=== PATIENT | male | born 1965 | race Caucasian/White ===

== ENCOUNTER 2017-08-04 09:57 | Observation (INO) | payer OTHER ==
--- NOTE | 2017-08-04 11:14 | EDPHY ---
H & P Time Seen by Provider: 08/04/17 11:11 HPI/ROS: Chief complaint. Ankle injury HPI. 52-year-old male presents emergency department with left ankle injury. He [place] ice. He felt a pop. The ankle feels unstable. He can't bear weight. Went to urgent care and he has displaced fracture. Patient is visiting from [place]. No previous injury. Last meal was clipped bar and water at 7:00 a.m. And then 2 sips of water at 10:00 a.m.. He denies any other injuries. ROS Constitutional. no fever/chills, no weakness Eyes. no problems with vision ENT. no sore throat, no nasal drainage Cardiovascular. no chest pain Respiratory. no shortness of breath, no cough Abdominal. no abdominal pain, no nausea/vomiting, no diarrhea . no problems urinating MS. Left ankle pain and swelling Skin. no rash Lymph. no swollen glands Neuro. Can't walk secondary to pain Past Medical/Surgical History: Pancreatitis Social History: , nonsmoker, no alcohol Smoking Status: Never smoked Physical Exam: General Appearance: Alert pleasant well-developed male mild distress vital signs are stable Eyes: Pupils equal and round no pallor or injection. ENT, Mouth: Mucous membranes are moist. Respiratory: There are no retractions, lungs are clear to auscultation. Cardiovascular: Regular rate and rhythm. Gastrointestinal: Abdomen is soft and nontender, no masses, bowel sounds normal. Neurological: Awake and alert, sensory and motor exams grossly normal. Skin: Warm and dry, no rashes. Musculoskeletal: Neck is supple nontender. Extremities diffuse swelling to both medial and lateral aspect of the left ankle. No interruption or break in the skin. Distal motor vascular sensitivity is intact Psychiatric: Patient is oriented X 3, there is no agitation. Constitutional: Initial Vital Signs Temperature (C) 37 C 08/04/17 10:12 Heart Rate 77 08/04/17 10:12 Respiratory Rate 18 08/04/17 10:12 Blood Pressure 147/91 H 08/04/17 10:12 O2 Sat (%) 95 08/04/17 10:12 O2 Delivery Mode Room Air Allergies/Adverse Reactions: No Known Allergies Allergy (Unverified 08/04/17 10:12) Home Medications: Medication Instructions Recorded Naproxen Sodium [Aleve 220 MG (*)] 220 mg PO DAILY PRN 08/04/17 Medical Decision Making - Diagnostics Imaging Results: Imaging Impressions Extremity CT 08/04/17 11:50 Impression: 1. Fracture of the distal fibula and posterior tibial plafond with widening of the medial aspect of the ankle mortise compatible with unstable fracture. There is displacement aspect posterior laterally of the distal aspect by 7-8 mm. X-rays reviewed by me show a displaced fracture of the distal fibular shaft at the ankle joint level with lateral and posterior displacement by about 8 mm. There is a small to chip her avulsion fracture fragment adjacent to the medial talar dome. It is suspicious for fracture of the posterior aspect of the distal tibia plafond Procedures: IV normal saline. Morphine for pain, Ativan for anxiety, Zofran for nausea. Patient is kept NPO ED Course/Re-evaluation: The patient and I Discussed the x-ray findings. I consulted discussed case with Dr. Parada on-call for Orthopedics. He would like to take the patient to the operating room this afternoon. He would like a CT of the ankle prior to OR. I have discussed this with the patient and he expresses understanding and agreement Differential Diagnosis: Closed ankle fracture but joint disruption and requires ORIF - Data Points Medications Given: Discontinued Medications Sodium Chloride (Ns) 1,000 mls @ 0 mls/hr IV EDNOW ONE; Wide Open PRN Reason: Protocol Stop: 08/04/17 11:51 Last Admin: 08/04/17 12:30 Dose: 1,000 mls Lorazepam (Ativan Injection) 1 mg IVP EDNOW ONE Stop: 08/04/17 11:52 Last Admin: 08/04/17 12:29 Dose: 1 mg Morphine Sulfate (Morphine) 6 mg IVP EDNOW ONE Stop: 08/04/17 11:52 Last Admin: 08/04/17 12:32 Dose: 4 mg Ondansetron HCl (Zofran) 4 mg IVP EDNOW ONE Stop: 08/04/17 11:52 Last Admin: 08/04/17 12:29 Dose: 4 mg Departure - Departure Disposition: [facility] Clinical Impression: Closed left ankle fracture Qualifiers: Encounter type: initial encounter Qualified Code(s): S82.892A - Other fracture of left lower leg, initial encounter for closed fracture Condition: Good
[2017-08-04] MEDS ORDERED: NS 1,000 ML IV ONE (11:50)
[2017-08-04] MEDS ORDERED: ONDANSETRON 4 MG/2 ML VIAL IVP ONE (11:51)
[2017-08-04] MEDS ORDERED: LORazepam 2 MG/ML INJ IVP ONE (11:51)
[2017-08-04 12:01] LABS: PLATELET COUNT 203 10^3/uL (150-400)
[2017-08-04 12:11] LABS: INR 1.06 (0.83-1.16)
--- NOTE | 2017-08-04 12:44 | CPEKG ---
Heart Rate: 70 RR Interval: 857 P-R Interval: 144 QRSD Interval: 80 QT Interval: 388 QTC Interval: 419 P Lindley: 31 QRS Lindley: 29 T Wave Lindley: 21 EKG Severity - ABNORMAL ECG - EKG Impression: SINUS RHYTHM EKG Impression: PROBABLE POSTERIOR INFARCT Electronically Signed By: Lacho Harley 04-Aug-2017 15:45:08
[2017-08-04] MEDS ORDERED: ceFAZolin 2 GM/DEXTROSE 100 ML IV ONE (14:43)
[2017-08-04] MEDS ORDERED: ONDANSETRON 4 MG/2 ML VIAL IVP PRN ×2 (14:49→17:03)
--- NOTE | 2017-08-04 14:49 | POSTOPPROG ---
Post Op Note Date of Operation: 08/04/17 Surgeon: Tremayne Parada Anesthesia: GET(General Endotracheal) Pre-op Diagnosis: L lateral and posterior malleolus fractures, deltoid ligament disruption Post-op Diagnosis: same Procedure: ORIF L lateral and posterior malleolus fractures, deltoid ligament repair Inf/Abcess present in the surg proc area at time of surgery?: No EBL: Minimal
[2017-08-04] MEDS ORDERED: MIDAZOLAM 2 MG/2 ML VIAL ONE (14:50)
[2017-08-04] MEDS ORDERED: fentaNYL 100 MCG/2 ML INJ ONE ×3 (14:50→15:39)
[2017-08-04] MEDS ORDERED: ceFAZolin 2 GM/SWFI 2 GM/20 ML SYR IVP ONE (15:00)
[2017-08-04] MEDS ORDERED: D5W 1/2 NS W/ 20 KCl/L 1,000 ML IV SCH (15:00)
[2017-08-04] MEDS ORDERED: PROPOFOL 200 MG/20 ML VIAL ONE (15:07)
[2017-08-04] MEDS ORDERED: LIDOCAINE 2% 100 MG/5 ML SYR ONE (15:08)
--- NOTE | 2017-08-04 15:25 | GCON ---
[f rep st] CONSULTATION CONSULTATION AND HISTORY AND PHYSICAL. CHIEF COMPLAINT: Left ankle pain. HISTORY OF PRESENT ILLNESS: The patient is a 52-year-old who sustained a fall on the ice, twisting h is left ankle. He noted immediate pain and deformity with inability to weightbear. He denies any pr evious problems or injuries relative to his left ankle. PAST MEDICAL HISTORY: Unremarkable. MEDICATIONS: None. ALLERGIES: No known drug allergies. PAST SURGICAL HISTORY: None. SOCIAL HISTORY: Negative for tobacco use. FAMILY HISTORY: Noncontributory. PHYSICAL EXAMINATION: GENERAL: Patient is alert and oriented x3, in mild distress secondary to his ankle pain. HEENT: Head is normocephalic. Pupils equal, round, reactive to light. Extraocular eye movements intact. NECK: Supple. No JVD or lymphadenopathy. CHEST: Clear to auscultation. HEART : Regular rate and rhythm. No murmurs or gallops. ABDOMEN: Soft, nontender, nondistended. No org anomegaly. GENITORECTAL AND BREAST: Exam was deferred. EXTREMITIES: Exam reveals a left ankle with moderate swelling. He has palpable dorsalis pedis pulse. His distal neurovascular exam was grossly intact. IMAGING: Shows evidence of a lateral and posterior malleolus fracture with medial widening. ASSESSMENT: Left ankle fracture dislocation (posterior and lateral malleolus and deltoid ligament di sruption). PLAN: Based on the displaced unstable nature of his injury, it was recommended that operative treatm ent consisting of open reduction, internal fixation, and deltoid ligament repair be pursued. /[id number]/MODL
[2017-08-04] MEDS ORDERED: BUPIVACAINE 0.25% 30 ML SDV ONE (16:01)
[2017-08-04] MEDS ORDERED: NALOXONE HCL 0.4 MG/ML INJ IVP PRN (17:03)
[2017-08-04] MEDS ORDERED: MEPERIDINE 25 MG/ML SYR IVP PRN (17:03)
[2017-08-04] MEDS ORDERED: fentaNYL 100 MCG/2 ML INJ IVP PRN (17:03)
[2017-08-04] MEDS ORDERED: ALBUTEROL 3 ML DEYVIAL IH PRN (17:03)
--- NOTE | 2017-08-04 17:04 | POSTANESTH ---
Post Anesthetic Evaluation Cardiovascular Status: Similar to Pre-Op Cond Respiratory Status: Similar to Pre-op Cond. Level of Consciousness/Mental Status: Mildly Sleepy, Arousable Pain Control: Adequate, Prn Tx Ordered Nausea/Vomiting Control: Adequate, Prn Tx Ordered Complications Possibly Related to Anesthesia: None Noted
--- NOTE | 2017-08-04 17:30 | GOP ---
[f rep st] OPERATIVE REPORT DATE OF OPERATION: 08/04/2017 SURGEON: Tremayne Parada MD ANESTHESIA: General plus popliteal and saphenous nerve blocks performed by the anesthesiologist at m y request for postoperative pain management. PREOPERATIVE DIAGNOSIS: 1. Left bimalleolar fracture (lateral and posterior malleolus). 2. Left deltoid ligament disruption. POSTOPERATIVE DIAGNOSIS: 1. Left bimalleolar fracture (lateral and posterior malleolus). 2. Left deltoid ligament disruption. PROCEDURE PERFORMED: 1. Open reduction/internal fixation, left bimalleolar ankle fracture (lateral and posterior malleolu s). 2. Open repair left deltoid ligament. 3. Intraoperative use of fluoroscopy. FINDINGS: ESTIMATED BLOOD LOSS: Minimal. INDICATIONS: Patient is a 52-year-old, who sustained a fall on ice on the day of presentation. He s ustained a left ankle fracture dislocation pattern. He presented to the emergency room. A provision al closed reduction was performed. Based on the displaced nature of his injury, it was recommended t hat operative treatment, consisting of open reduction/internal fixation, be pursued. The patient ack nowledged he understood the potential risks of the operation, including, but not limited to, bleeding , infection, neurovascular damage, loss of limb or the function, malunion, nonunion, need for hardwar e removal, pain or functional limitations despite operative treatment, and anesthetic risks. He ackn owledged he understood the potential risks, planned procedure, and postoperative plan well, and had a ll questions answered prior to surgery. He gave his consent for the operative procedure. DESCRIPTION OF PROCEDURE: The patient was brought to the operating room after popliteal and saphenou s nerve blocks were performed by the anesthesiologist at my request for postoperative pain management . IV antibiotics were administered. He was placed in a supine position where general anesthetic was administered. A tourniquet was placed on the left calf, and the patient was transferred to a right lateral decubitus position on the operating table with beanbag support, axillary roll, and padding of all bony prominences. The left lower leg was prepped and draped in standard sterile fashion. After marking the incision and Jefry wrap exsanguination, tourniquet was inflated to 250 mmHg. A longitudin al incision was made posterior to the distal fibula. Skin and subcutaneous tissues were sharply inci sed. Sharp dissection was carried just anterior to the peroneal tendons, exposing the posterior aspe ct of the fibula. Hematoma was evacuated. Based on the nature of the fracture pattern, a posterior "antiglide" plating technique was performed. A 6-hole 1/3 tubular plate was malleted flat at its dis branden aspect and curved slightly at the distal tip. This was placed along the posterior border of the fibula. Just proximal to the fracture plane, a 3.5 mm bicortical screw was placed in a posterior-to- anterior direction through the plate. As the screw was tightened, the fracture was anatomically redu britt with a dental pick and a 2-point reduction clamp. With the fracture held in anatomically reduced position, a 2.7 mm cortical screw was placed in lag fashion through the plate across the fracture si te. A supplemental 3.5 mm bicortical screw was then placed in the most proximal hole of the plate. Fluoroscopic views confirmed favorable hardware placement and anatomic fracture reduction. Attention was then directed toward the posterior malleolar fracture. Through the same incision, the interval between the peroneal and flexor hallucis longus tendons was utilized for exposure of the pos terior aspect of the distal tibia. The flexor hallucis brevis was retracted medially. The posterior malleolar fracture was identified. A 4-hole 1/4 tubular plate was then slightly contoured and place d along the posterolateral border of the distal tibia. Just proximal to the fracture plane, a 2.7 mm cortical screw was placed in a [id number] direction through the most proximal hole in the plate, reducing and stabilizing the fracture. A 2.7 mm cortical screw was then placed in lag fashio n through the most distal hole in the plate across the fracture. Fluoroscopic views confirmed favora ble reduction and hardware placement. Attention was directed toward closure. The fascia layer and peroneal retinaculum were reapproximated with 2-0 Vicryl suture in interrupted fashion, subcutaneous tissue closed with 3-0 Vicryl suture in interrupted fashion, and skin closed with 4-0 nylon interrupted sutures. The beanbag was deflated, a nd, keeping sterile field intact, the patient was carefully transitioned to a supine position. Attention was directed toward the medial ankle. An oblique incision was made along the anteromedial aspect of the ankle. Skin and subcutaneous tissue were sharply incised. Care was taken to avoid dam age to the saphenous vein. The superficial and deep deltoid ligaments were noted to be completely di srupted. They were slightly in folded in the medial gutter. The in-fold of the ligament was removed . Examination of the ankle joint revealed no visible chondral damage. A 2.9 mm JuggerKnot anchor wa s placed in the deltoid insertion of the medial malleolus. The suture ends were then pulled through the deep deltoid ligament and secured. The subcutaneous tissue was then closed with 3-0 Vicryl sutur e in interrupted fashion and skin closed with 4-0 nylon interrupted vertical mattress sutures. 0.5% M arcaine without epinephrine was injected into the medial wound. The wounds were dressed with sterile Adaptic, 4 x 4, and Webril, and leg was placed in a below-knee splint. The patient tolerated the pr ocedure well and was taken to the recovery room, extubated, in stable condition postoperatively. All sponge, needle, and instrument counts were reported as being correct. DRAINS: None. COMPLICATIONS: None. PLAN: The patient will be admitted for overnight observation. He will be nonweightbearing on his op erative extremity. /[id number]/MODL
[2017-08-04] MEDS ORDERED: ceFAZolin 2 GM/DEXTROSE 100 ML IV SCH (22:00)
[2017-08-05 04:37] VITALS: RESP 16
[2017-08-05] MEDS: oxyCODONE IR 5 MG TAB PO PRN ×2 (05:43→09:37)
[2017-08-05 07:41] VITALS: BP 98/68; PULSE 84; TEMP 97.9; O2SAT 92
--- NOTE | 2017-08-05 08:37 | SOAPPROG ---
SOAP Progress Note Assessment/Plan: Assessment: S/P ORIF R bimalleolar ankle fx/ deltoid ligament repair Pain tolerable. Nerve block functioning Gilles. Diet + U/O Splint intact. No D/C Toes with + DF/PF Plan: OOB/PT/ D/C home 08/05/17 08:34 Objective: Vital Signs Temp Pulse Resp BP Pulse Ox 36.6 C 84 16 98/68 L 92 08/05/17 07:40 08/05/17 07:40 08/05/17 07:40 08/05/17 07:40 08/05/17 07:40 08/04/17 08/05/17 08/06/17 05:59 05:59 05:59 Intake Total 830 Output Total 725 Balance 105 PT 14.0 SEC (12.0-15.0) 08/04/17 11:51 INR 1.06 (0.83-1.16) 08/04/17 11:51 ICD10 Worksheet Patient Problems: Problems Problem Status Onset Closed left ankle fracture Acute
[2017-08-05] MEDS ORDERED: ENOXAPARIN 40 MG/0.4 ML SYR SC ONE (09:00)
[2017-08-05] MEDS ORDERED: ceFAZolin 2 GM/SWFI 2 GM/20 ML SYR IVP SCH (10:30)
== END 2017-08-05 12:20 | disposition home or self-care (01) ==
LOC: INTOOBSV 11:51 → F3N 11:51
PROVIDERS: ADMIT Orthopaedic Surgery Foot and Ankle Surgery; ATTEND Orthopaedic Surgery Foot and Ankle Surgery
DX: S82.842A Displaced bimalleolar fracture of left lower leg, initial encounter for closed fracture (principal); S93.422A Sprain of deltoid ligament of left ankle, initial encounter; W00.0XXA Fall on same level due to ice and snow, initial encounter; Y92.481 Parking lot as the place of occurrence of the external cause; Y99.8 Other external cause status
CPT/HCPCS: 27695; 27814; 71045; 73700; 93005; 97116; 97161; G0378; 96374; C1713; J0690; J1650; J2001; J2060; J2250; J2270; J2405; J2704; J3010

== ENCOUNTER → 2017-08-04 | Outpatient (CLI) | payer OTHER | LOC: BMCIMAGING 08:59 | PROVIDERS: ATTEND Family Medicine | DX: S82.492A Other fracture of shaft of left fibula, initial encounter for closed fracture (principal) ==